=== PATIENT | female | born 1940 | race Caucasian/White ===

== ENCOUNTER 2020-09-26 05:58 | Day surgery (SDC) | payer OTHER ==
[2020-09-25 09:40] LABS: ALBUMIN 3.9 g/dL (3.4-5.0); ANION GAP 14.7 (8-16); ASPARTATE AMINOTRANSFERASE 16 U/L (15-37); CARBON DIOXIDE 27.1 mmol/L (21-32); CHLORIDE 103 mmol/L (98-107); CREATININE 1.4 mg/dL (0.6-1.3); GLUCOSE 133 mg/dL (74-106); POTASSIUM 3.8 mmol/L (3.5-5.1); SODIUM SERUM 141 mmol/L (136-145); TOTAL BILIRUBIN 0.6 mg/dL (0.0-1.0); UREA NITROGEN, BLOOD 23 mg/dL (7-18)
[2020-09-25 09:55] LABS: BASOPHILS # (AUTO) 0.1 K/uL (0.00-0.22); EOSINOPHILS # (AUTO) 0.1 K/uL (0-0.4); EOSINOPHILS % (AUTO) 1.6 % (0.0-4.0); HEMOGLOBIN 12.5 g/dL (12.0-16.0); LYMPHOCYTES # (AUTO) 2.3 K/uL (2.5-16.5); LYMPHOCYTES % (AUTO) 34.6 % (20.5-51.1); MEAN CORPUSCULAR HEMOGLOBIN 31 pg (27-31); MEAN CORPUSCULAR HGB CONC 34 g/dL (33-37); MEAN CORPUSCULAR VOLUME 93.1 fL (80-94); MONOCYTES # (AUTO) 0.5 K/uL (0.8-1.0); MONOCYTES % (AUTO) 6.8 % (1.7-9.3); NEUTROPHILS # (AUTO) 3.7 K/uL (1.8-7.7); PLATELET COUNT (AUTO) 312 K/uL (140-450); RED BLOOD CELL COUNT(AUTO) 3.97 MIL/uL (4.20-5.40); RED CELL DISTRIBUTION WIDTH 13.5 % (11.6-13.7); WHITE BLOOD COUNT (AUTO) 6.6 K/uL (4.8-10.8)
[~2020-09-26] VITALS: Ht 160 cm; Wt 74.8 kg
[2020-09-26] MEDS ORDERED: HYDROCORTISONE NA SUCC 100 MG/2 ML VIAL ONE (10:25)
[2020-09-26] MEDS ORDERED: ONDANSETRON 4 MG/2 ML VIAL IVP PRN (10:40)
[2020-09-26] MEDS ORDERED: NACL 0.9% 1,000 ML IV SCH (10:40)
[2020-09-26] MEDS ORDERED: MEPERIDINE 25 MG/ML SYR IVP PRN (10:40)
[2020-09-26] MEDS ORDERED: diphenhydrAMINE 50 MG/ML VIAL IVP PRN (10:40)
[2020-09-26] MEDS ORDERED: BLOOD GLUCOSE MONITORING 1 DEV DEV FS SCH (10:42)
[2020-09-26] MEDS ORDERED: hydrALAZINE 20 MG/ML VIAL ONE (11:05)
[2020-09-26] MEDS ORDERED: fentaNYL citrate 0.05 MG/ML VIAL ONE (11:05)
[2020-09-26] MEDS ORDERED: PROPOFOL 200 MG/20 ML VIAL IV ONE (11:05)
[2020-09-26] MEDS ORDERED: GLYCOPYRROLATE 0.2 MG/ML VIAL ONE (11:05)
[2020-09-26] MEDS ORDERED: ESMOLOL 100 MG/10 ML VIAL IV ONE (11:05)
[2020-09-26] MEDS ORDERED: ONDANSETRON 4 MG/2 ML VIAL ONE (11:05)
[2020-09-26] MEDS ORDERED: METOCLOPRAMIDE 10 MG/2 ML INJ VIAL ONE (11:05)
[2020-09-26] MEDS ORDERED: MIDAZOLAM 2 MG/2 ML VIAL ONE (11:05)
[2020-09-26] MEDS ORDERED: LORazepam 2 MG/ML VIAL IM/IVP STA (12:26)
== END 2020-09-26 13:46 | disposition home or self-care (01) ==
LOC: MDS 05:58 → MFCC 06:06 → MDS 13:46
PROVIDERS: ATTEND Internal Medicine Gastroenterology
DX: R13.10 Dysphagia, unspecified (principal); I12.9 Hypertensive chronic kidney disease with stage 1 through stage 4 chronic kidney disease, or unspecified chronic kidney disease; E11.22 Type 2 diabetes mellitus with diabetic chronic kidney disease; N18.9 Chronic kidney disease, unspecified; K21.9 Gastro-esophageal reflux disease without esophagitis; Z88.0 Allergy status to penicillin; Z88.2 Allergy status to sulfonamides; Z88.5 Allergy status to narcotic agent; Z88.6 Allergy status to analgesic agent; M06.9 Rheumatoid arthritis, unspecified; Z90.49 Acquired absence of other specified parts of digestive tract; Z96.89 Presence of other specified functional implants
CPT/HCPCS: 36415; 43260; 71045; 74328; 80053; 85025; 87426; J0360; J1720; J2060; J2250; J2405; J2704; J2765; J3010; J3490; 74330